=== PATIENT | male | born 1990 ===

== ENCOUNTER 2018-05-25 05:30 | Emergency (ER) | payer OTHER ==
--- NOTE | 2018-05-25 05:46 | ED PDOC ---
HPI: Psych/Substance Abuse Time Seen by Provider: 05/25/18 05:36 Chief Complaint (Provider): etoh History Per: Patient, EMS Additional Complaint(s): 27 y/o male brought in by EMS for public intoxication. Patient admits to drinking tonight; states him and his roommate got at some point and he must have fallen asleep on bench. Patient awake, alert, oriented x3. Ambulating steady gait. Denies acute medical or psychiatric complaints Past Medical History Reviewed: Historical Data, Nursing Documentation, Vital Signs - Medical History PMH: No Chronic Diseases - Surgical History Surgical History: No Surg Hx - Family History Family History: States: No Known Family Hx Review of Systems ROS Statement: Except As Marked, All Systems Reviewed And Found Negative Physical Exam - Reviewed Nursing Documentation Reviewed: Yes Vital Signs Reviewed: Yes - Physical Exam Appears: Positive for: Well, Non-toxic, No Acute Distress Head Exam: Positive for: ATRAUMATIC, NORMAL INSPECTION, NORMOCEPHALIC Skin: Positive for: Normal Color Eye Exam: Positive for: Normal appearance ENT: Positive for: Normal ENT Inspection Cardiovascular/Chest: Positive for: Regular Rate, Rhythm Respiratory: Positive for: Normal Breath Sounds Gastrointestinal/Abdominal: Positive for: Normal Exam Back: Positive for: Normal Inspection Extremity: Positive for: Normal ROM Neurologic/Psych: Positive for: Alert, Oriented (x3) - Progress ED Course And Treament: Patient awake, alert, oriented x3. Ambulating steady gait. Patient requires no further intervention in the ED and is stable for discharge at this time. Disposition - Clinical Impression Clinical Impression: Alcohol intoxication - Patient ED Disposition Is Patient to be Admitted: No Counseled Patient/Family Regarding: Diagnosis, Need For Followup - Disposition Disposition: Routine/Home Disposition Time: 05:46 Condition: STABLE Instructions: Alcohol Use - When Is Drinking a Problem?
[2018-05-25 05:51] VITALS: BP 128/77; PULSE 90; RESP 18; TEMP 98.2; O2SAT 98
== END 2018-05-25 06:00 | disposition home or self-care (01) ==
LOC: H.ER 05:30
DX: F10.129 Alcohol abuse with intoxication, unspecified (principal)

== ENCOUNTER 2018-08-01 17:07 | Emergency (ER) | payer OTHER ==
[2018-08-01 17:21] VITALS: BP 108/69; PULSE 70; RESP 18; TEMP 97.7; O2SAT 100
--- NOTE | 2018-08-01 18:49 | ED PDOC ---
HPI: Trauma/Fall - HPI Time Seen by Provider: 08/01/18 17:36 Chief Complaint (Nursing): Hip Pain Chief Complaint (Provider): left thigh and groin pain History Per: Patient History/Exam Limitations: no limitations Onset/Duration Of Symptoms: Hrs (x3) Additional Complaint(s): Brian Willard, a 27 year old male with no significant past medical history, presents to the ED with left thigh and groin pain onset 3 hours ago. Patient reports he stepped wrong and fell while playing soccer with his left leg going behind him to the left side and his right leg going in the opposite direction. He states he had pain in his thigh and groin immediately following the fall. He reports he placed ice on the injury and rested, resulting in improvement in pain. Patient states now it is a dull ache. He also reports mild knee pain due playing on part concrete, part grass and hitting his knee on concrete when he fell. Patient denies numbness and tingling in left lower extremity, testicular pain, head trauma, loss of consciousness, dizziness, palpitations, and ankle pain. He also denies hypertension, hyperlipidemia, diabetes, asthma, or other chronic illnesses. PCP: none provided Past Medical History Reviewed: Historical Data, Nursing Documentation, Vital Signs Vital Signs: Last Vital Signs Temp 97.7 F 08/01/18 17:19 Pulse 70 08/01/18 17:19 Resp 18 08/01/18 17:19 BP 108/69 08/01/18 17:19 Pulse Ox 100 08/01/18 17:19 - Medical History PMH: No Chronic Diseases Denies: Asthma, Diabetes, HTN, Hyperlipidemia - Family History Family History: States: Unknown Family Hx - Home Medications Home Medications: Ambulatory Orders Medication Instructions Recorded Ibuprofen [Motrin Tab] 600 mg PO Q6H PRN 7 Days tab 08/01/18 - Allergies Allergies/Adverse Reactions: Allergies Allergy/AdvReac Type Severity Reaction Status Date / Time No Known Allergies Allergy Verified 08/01/18 17:19 Review of Systems ROS Statement: Except As Marked, All Systems Reviewed And Found Negative Constitutional: Negative for: Other (head trauma, loss of consciousness) Cardiovascular: Negative for: Palpitations Genitourinary Male: Negative for: Scrotal Pain Musculoskeletal: Positive for: Leg Pain (thigh and groin pain, mild knee pain). Negative for: Foot Pain (ankle pain) Neurological: Negative for: Numbness (or tingling in left lower extremity), Dizziness Physical Exam - Reviewed Nursing Documentation Reviewed: Yes Vital Signs Reviewed: Yes - Physical Exam Appears: Negative for: Uncomfortable Head Exam: Positive for: ATRAUMATIC Neck: Positive for: Painless ROM (good ROM), Supple Male Genital Exam: Positive for: normal genitalia (RN loan specialist present during exam). Negative for: other (swelling, ecchymosis, tenderness upon palpation, mass. ) Back: Negative for: Vertebral Tenderness (paravertebral spine tenderness) Extremity: Positive for: Normal ROM (with flexion and extension of left hip, left knee, and left ankle), Tenderness (mild tenderness upon palpation of left groin/superior thigh. tender abduction of left hip). Negative for: Deformity (to left lower extremity), Swelling (swelling or ecchymosis to left lower extremity) Neurologic/Psych: Positive for: Other (Bilateral lower extremity strength is equal and sensation intact ) - ECG O2 Sat by Pulse Oximetry: 100 (RA) Pulse Ox Interpretation: Normal Medical Decision Making Medical Decision Making: Time: 1849 Initial plan: --X-ray left femoral -- Ibuprofen 600mg PO x 1 Femur x-ray reviewed with Dr. Contreras: No acute abnormality or fracture noted. Stable for d/c home Scribe Attestation: Documented by Paco Franklin, acting as a scribe for Samantha Trevino PA-C Provider Scribe Attestation: All medical record entries made by the Scribe were at my direction and personally dictated by me. I have reviewed the chart and agree that the record accurately reflects my personal performance of the history, physical exam, medical decision making, and the department course for this patient. I have also personally directed, reviewed, and agree with the discharge instructions and disposition. Disposition - Clinical Impression Clinical Impression: Muscle strain - Patient ED Disposition Is Patient to be Admitted: No Counseled Patient/Family Regarding: Diagnosis, Need For Followup, Rx Given - Disposition Referrals: Juana Adhikari MD [Staff Provider] - Disposition: Routine/Home Disposition Time: 20:24 Condition: IMPROVED Additional Instructions: Rest, no strenuous activity until pain improves. Ibuprofen for pain. F/u with primary care provider as needed for worsening pain. Prescriptions: Ibuprofen [Motrin Tab] 600 mg PO Q6H PRN 7 Days tab PRN Reason: Pain, Moderate (4-7) Instructions: Muscle Strain (DC) Forms: [facility] (Russian) Print Language: [place]AST [place]
--- NOTE | 2018-08-02 09:01 | RAD ---
Date of service: 08/01/2018 PROCEDURE: Left Femur Radiographs. HISTORY: anterior thigh pain after fall COMPARISON: None. TECHNIQUE: AP and Lateral Radiographs of the left femur. FINDINGS: FEMUR: Frontal and lateral views of the left femur utilizing 4 images were performed. No fracture is seen. No lytic process is noted. Femoral condyles and femoral head are intact. Few tiny bone islands are seen in the proximal left femur. Noted along the anterolateral aspect of the mid shaft of the left femur is a nonspecific amount of smooth periosteal bone formation without underlying erosion or medullary expansion. In addition there is a large area of hypertrophic bony spurring identified just superior to the left acetabulum. Both findings may reflect prior chronic injury or chronic repetitive stress type process but will require further clinical follow-up. An element of myositis ossificans is also not excluded. SOFT TISSUES: No appreciable soft tissue abnormality in the left thigh region. OTHER FINDINGS: None. IMPRESSION: No acute fracture. There is however evidence of some nonspecific bony abnormalities described in detail above. These may reflect sequela of prior chronic injury or chronic repetitive stress. An element of myositis ossificans is not fully excluded. Further clinical follow-up is suggested. As there is no reading provided by the emergency room department, this case will be placed into the PA review folder following normal department protocol.
--- NOTE | 2018-08-02 13:53 | ED PDOC ---
ED Additional Note - Date & Time of Evaluation Date of Evaluation: 08/02/18 - Physician Additional Note Physician Additional Note: PA performing radiology call backs: Left femur x-ray official read shows: No acute fracture. There is however evidence of some nonspecific bony abnormalities described in detail above. These may reflect sequela of prior chronic injury or chronic repetitive stress. An element of myositis ossificans is not fully excluded. Further clinical follow-up is suggested. Patient called to discuss results and given contact information for orthopedist, Dr. José Antonio Luevano, for further evaluation and treatment of this benign but likely chronic condition. Patient stated understanding.
== END 2018-08-01 20:24 | disposition home or self-care (01) ==
LOC: H.ER 17:07
DX: S76.212A Strain of adductor muscle, fascia and tendon of left thigh, initial encounter (principal); X50.9XXA Other and unspecified overexertion or strenuous movements or postures, initial encounter; Y92.322 Soccer field as the place of occurrence of the external cause; Y93.66 Activity, soccer